=== PATIENT | male | born 1945 | race Caucasian/White ===

== ENCOUNTER → 2019-08-06 | Outpatient (CLI) | payer MEDICARE ==
--- NOTE | 2019-08-06 14:55 | US ---
EXAMINATION TYPE: US kidneys/renal and bladder DATE OF EXAM: 08/06/2019 COMPARISON: NONE CLINICAL HISTORY: N28.1 Cyst of kidney. Patient states having an MRI done at outside facility that sh owed something on a kidney. No pain. EXAM MEASUREMENTS: Right Kidney: 9.0 x 4.7 x 5.1 cm Left Kidney: 10.9 x 4.4 x 5.5 cm Right Kidney: Upper pole cystic appearing lesion = 1.0 x 0.9 x 0.9 cm Left Kidney: lower pole cystic appearing lesion in renal sinus = 0.9 x 0.8 x 0.9 cm Bladder: distended, anechoic Bilateral Jets seen There is no evidence for hydronephrosis at this point in time. No nephrolithiasis is seen. No suspi cious masses are identified. The urinary bladder is anechoic. Bilateral ureteral jets are seen. IMPRESSION: Small renal lesions appear cystic measuring 1.0 cm on the right and 0.9 cm on the left. N o suspicious renal mass is seen. No hydronephrosis nor nephrolithiasis.
== END | disposition home or self-care (01) ==
LOC: RADUSWWP 13:37
PROVIDERS: ATTEND Internal Medicine
DX: N28.9 Disorder of kidney and ureter, unspecified (principal)
CPT/HCPCS: 76770

== ENCOUNTER → 2021-02-20 | Outpatient (CLI) | payer MEDICARE ==
[2021-02-20 18:52] LABS: HCT 45.3 % (39.6-50.0); HGB 14.6 g/dL (13.0-17.0); MCH 29.6 pg (27.0-32.0); MCHC 32.2 g/dL (32.0-37.0); MCV 91.7 fL (80.0-97.0); Mean Platelet Volume 10.7 fL (9.5-12.2); Platelet Count 200 X 10*3/uL (140-440); RBC 4.94 X 10*6/uL (4.40-5.60); RDW 14.2 % (11.5-14.5); WBC 4.79 X 10*3/uL (4.50-10.00)
[2021-02-20 22:57] LABS: African American GFR (CKD) 95.8 (60.0-200.0); Albumin 4.3 g/dL (3.80-4.90); Albumin/Globulin Ratio 2.05 (1.60-3.17); Anion Gap 8.5 mmol/L (4.00-12.00); BUN/Creat Ratio 16.67 Ratio (12.00-20.00); Calcium 9.2 mg/dL (8.7-10.3); Carbon Dioxide 25.5 mmol/L (21.6-31.8); Chol/HDL Ratio 2.85; Globulin 2.1 g/dL (1.6-3.3); Non-African American GFR(CKD) 82.7 (60.0-200.0); Potassium 4.6 mmol/L (3.5-5.5); Total Bilirubin 0.4 mg/dL (0.2-1.2); Total Protein 6.4 g/dL (6.2-8.2)
[2021-02-20 23:06] LABS: T4, Free (Free Thyroxine) 1.8 ng/dL (0.80-1.80)
[2021-02-20 23:08] LABS: Prostate Specific Antigen 4.1 ng/mL (0.0-6.5)
== END | disposition home or self-care (01) ==
LOC: LABWHC1 08:41
PROVIDERS: ATTEND Family Medicine
DX: Z00.00 Encounter for general adult medical examination without abnormal findings (principal); E78.5 Hyperlipidemia, unspecified; E55.9 Vitamin D deficiency, unspecified; E03.9 Hypothyroidism, unspecified; Z12.5 Encounter for screening for malignant neoplasm of prostate
CPT/HCPCS: 36415; 80053; 80061; 82306; 84153; 84439; 84443; 85027

== ENCOUNTER → 2022-02-24 | Outpatient (CLI) | payer MEDICARE ==
[2022-02-24 18:24] LABS: Basophils # (A) 0.02 X 10*3/uL (0.00-0.10); Basophils % (A) 0.3 %; Eosinophils # (A) 0.09 X 10*3/uL (0.04-0.35); Eosinophils % (A) 1.6 %; HCT 46.2 % (39.6-50.0); Immature Grans, Automated 0.5 %; Lymphocytes # (A) 1.37 X 10*3/uL (0.90-5.00); Lymphocytes % (A) 23.7 %; MCHC 32.5 g/dL (32.0-37.0); MCV 92.4 fL (80.0-97.0); Mean Platelet Volume 10.5 fL (9.5-12.2); Monocytes # (A) 0.54 X 10*3/uL (0.20-1.00); Monocytes % (A) 9.3 %; NRBC Per 100 WBC 0 /100 WBCS (0.0-0.0); Neutrophils # (A) 3.74 X 10*3/uL (1.80-7.70); Neutrophils % (A) 64.6 %; Platelet Count 195 X 10*3/uL (140-440); RDW 13.9 % (11.5-14.5); WBC 5.79 X 10*3/uL (4.50-10.00)
[2022-02-24 18:52] LABS: ALT 28 U/L (10-49); AST 27 U/L (14-35); African American GFR (CKD) 81.8 (60.0-200.0); Albumin 4.5 g/dL (3.8-4.9); Albumin/Globulin Ratio 1.84 (1.60-3.17); Alkaline Phosphatase 90 U/L (41-126); BUN/Creat Ratio 18.82 Ratio (12.00-20.00); Blood Urea Nitrogen 19.2 mg/dL (9.0-27.0); Calcium 9.4 mg/dL (8.7-10.3); Carbon Dioxide 26.6 mmol/L (20.0-27.5); Chloride 104 mmol/L (96-109); Chol/HDL Ratio 2.73 Ratio; Globulin 2.4 g/dL (1.6-3.3); Glucose 92 mg/dL (70-110); Non-African American GFR(CKD) 70.6 (60.0-200.0); Potassium 4.8 mmol/L (3.5-5.5); Sodium 141 mmol/L (135-145); Total Protein 6.9 g/dL (6.2-8.2); VLDL Calculation 17.64 mg/dL (5.00-40.00)
== END | disposition home or self-care (01) ==
LOC: LABWHC1 09:59
PROVIDERS: ATTEND Family Medicine
DX: Z12.5 Encounter for screening for malignant neoplasm of prostate (principal); E78.5 Hyperlipidemia, unspecified; E03.9 Hypothyroidism, unspecified
CPT/HCPCS: 36415; 80053; 80061; 84153; 84439; 84443; 84481; 85025

== ENCOUNTER → 2022-03-23 | Outpatient (CLI) | payer MEDICARE ==
--- NOTE | 2022-03-23 15:46 | US ---
EXAMINATION TYPE: US carotid duplex BILAT DATE OF EXAM: 03/23/2022 COMPARISON: NONE CLINICAL HISTORY: 76-year-old male Z82.49 FAMILY HISTORY OF CARDIOVASCULAR DISEASE. TECHNIQUE: Carotid duplex ultrasound examination. Indirect Doppler criteria was utilized. FINDINGS: EXAM MEASUREMENTS: RIGHT: Peak Systolic Velocity (PSV) cm/sec ----- Right CCA: 91.1 ----- Right ICA: 77.2 ----- Right ECA: 153 ICA/CCA ratio: 0.8 RIGHT: End Diastole cm/sec ----- Right CCA: 23.7 ----- Right ICA: 49.3 ----- Right ECA: 21.4 LEFT: Peak Systolic Velocity (PSV) cm/sec ----- Left CCA: 96.2 ----- Left ICA: 68.0 ----- Left ECA: 170.0 ICA/CCA ratio: 0.7 LEFT: End Diastole cm/sec ----- Left CCA: 28.2 ----- Left ICA: 19.1 ----- Left ECA: 26.1 VERTEBRALS (direction of flow): Right Vertebral: Antegrade Left Vertebral: Antegrade Rhythm: Normal Medical Assistant Dermatology notes: Mild atherosclerotic changes with no significant velocity increases. IMPRESSION: No hemodynamically significant internal carotid artery stenosis on either side. Criteria for Assigning % of Stenosis / Diameter reduction (Estimation based on the indirect measurements of the internal carotid artery velocities (ICA PSV). 1. Normal (no stenosis)=ICA PSV < 125 cm/s: ratio < 2.0: ICA EDV<40 cm/s. 2. Less than 50% stenosis=ICA PSV < 125 cm/s: ratio < 2.0: ICA EDV<40 cm/s. 3. 50 to 69% stenosis=ICA PSV of 125 to 230 cm/s: ration 2.0 ? 4.0: ICA EDV 40-100 cm/s. 4. Greater than 70% stenosis to near occlusion= ICA PSV > 230 cm/s: ratio > 4.0: ICA EDV > 100 cm/s. 5. Near occlusion= ICA PSV velocities may be low or undetectable: variable ratio and ICA EDV. 6. Total occlusion=unable to detect flow.
--- NOTE | 2022-03-24 11:52 | CA ---
Transthoracic Echo Report Name: Humberto Simpson Age: 76 Gender: M : 1945 Exam Date: 03/23/2022 15:28 Exam Location: [place] [facility] Ht (in): 67 Wt (lb): 180 Ordering Physician: Karen Sung MD Attending/Referring Phys: Territory Representative Winsome Dyer RDCS Procedure CPT: Indications: Z82.49 FAMILY HX OF CARDIOVASC DISEASE Cardiac Hx: Technical Quality: Good Contrast 1: Total Dose (mL): Contrast 2: Total Dose (mL): MEASUREMENTS (Male / Female) Normal Values 2D ECHO LV Diastolic Diameter PLAX 3.1 cm 4.2 - 5.9 / 3.9 - 5.3 cm LV Systolic Diameter PLAX 2.1 cm IVS Diastolic Thickness 1.3 cm 0.6 - 1.0 / 0.6 - 0.9 cm LVPW Diastolic Thickness 1.4 cm 0.6 - 1.0 / 0.6 - 0.9 cm LV Relative Wall Thickness 0.9 RV Internal Dim ED PLAX 3.5 cm LA Systolic Diameter LX 2.8 cm 3.0 - 4.0 / 2.7 - 3.8 cm LA Volume 23.0 cm??? 18 - 58 / 22 - 52 cm??? M-MODE Aortic Root Diameter MM 3.4 cm MV E Point Septal Separation 0.8 cm AV Cusp Separation MM 2.0 cm DOPPLER AV Peak Velocity 122.4 cm/s AV Peak Gradient 6.0 mmHg MV Area PHT 1.6 cm??? Mitral E Point Velocity 47.5 cm/s Mitral A Point Velocity 99.3 cm/s Mitral E to A Ratio 0.5 MV Deceleration Time 461.1 ms MV E' Velocity 6.7 cm/s Mitral E to MV E' Ratio 7.1 TR Peak Velocity 213.8 cm/s TR Peak Gradient 18.3 mmHg Right Ventricular Systolic Press 21.8 mmHg FINDINGS Left Ventricle Left ventricular ejection fraction is estimated at 60-65 %. Left ventricular cavity size normal. Mild concentric left ventricular hypertrophy. Right Ventricle Right ventricular dilatation. Right ventricular systolic pressure within normal limits. Right Atrium Normal right atrial size. Left Atrium Normal left atrial size. No evidence for an atrial septal defect. Mitral Valve Structurally normal mitral valve. No mitral stenosis, regurgitation or prolapse. Aortic Valve Trileaflet aortic valve. No aortic valve stenosis or regurgitation. Tricuspid Valve Mild tricuspid regurgitation. Pulmonic Valve Mild pulmonic regurgitation. Pericardium Normal pericardium. Aorta Normal size aortic root and proximal ascending aorta. CONCLUSIONS Normal left ventricular ejection fraction 60-65% Mild LVH Mild tricuspid regurgitation No pericardial effusion Previewed by: Dr. Fan Moore DO (Electronically Signed) Final Date: 24 March 2022 11:51
== END | disposition home or self-care (01) ==
LOC: RADUSWWP 14:40
PROVIDERS: ATTEND Family Medicine
DX: I65.23 Occlusion and stenosis of bilateral carotid arteries (principal); Z82.49 Family history of ischemic heart disease and other diseases of the circulatory system
CPT/HCPCS: 93306; 93880

== ENCOUNTER → 2022-04-01 | Outpatient (CLI) | payer MEDICARE ==
--- NOTE | 2022-04-01 11:43 | CA ---
Exercise Stress Test Report Name: Humberto Simpson Exam Date: 04/01/2022 10:49 Exam Location: [place] Stress Ht (in): 67 Wt (lb): 180 BSA: 1.93 Ordering Phys: Karen Sung MD Referring Phys: MARIE,, Technologist: Bhavik Montiel Age: 76 Gender: M : 1945 Procedure CPT: Indications: Z82.49 FAMILY HX OF ISCHEMIC HEART DISEASE ICD-10 Codes: Patient History: DIFFICULTY IN BREATHING, ELEVATED CHOLESTEROL LEVELS, FAMILY HX OF HEART DISEASE Medications: SYNTHROID,,,,,, PIVASTATIN CALCIUM,,,,, Meds past 24 hrs: Pretest Chest Pain: STRESS TEST Jeremy Protocol Exercise Duration (min:sec): 09:[address] Depressions (mm): Angina Score: Biswas Score: Resting HR (bpm): 76 Peak HR (bpm): 135 Resting BP (mmHg): 128 / 80 Peak BP (mmHg): 185 / 91 MPHR: 143 Target HR: 122 % MPHR: 94 METS: 10.3 Total Dose: Peak Dose: Atropine: Double Product: 84004 BP Response: Stress Termination: Stress Symptoms: No symptoms Stress Summary: Patient walked on the Jeremy protocol for 9 minutes without any chest pain or cardiac arrhythmia ECG ANALYSIS Resting ECG: Sinus rhythm with incomplete right bundle branch block Stress ECG: Sinus rhythm without any changes of ischemia CONCLUSIONS #1. Negative stress test. #2. Patient did not experience any chest pain. #3. No arrhythmias detected. #4. Patient's exercise capacity is good Dr. Aguilar Whiting MD (Electronically Signed) Final Date: 01 April 2022 11:42
== END | disposition home or self-care (01) ==
LOC: RADNMMAIN 10:24
PROVIDERS: ATTEND Family Medicine
DX: R07.9 Chest pain, unspecified (principal)
CPT/HCPCS: 93017

== ENCOUNTER 2022-04-03 21:30 | Emergency (ER) | payer MEDICARE ==
[2022-04-03 22:47] VITALS: TEMP 98.5
[2022-04-03 23:48] LABS: Appearance,Urine Clear (Clear); Bacteria,Urine Rare /hpf; Bilirubin,Urine Negative (Negative); Blood,Urine Negative (Negative); Color,Urine Yellow; Glucose,Urine (UA) Negative (Negative); Hyaline Casts,Urine 3 /lpf (0-2); Ketones,Urine Trace (Negative); Leukocyte Esterase,Urine Small (Negative); Mucus,Urine Occasional /hpf; Nitrite,Urine Negative (Negative); PH, Urine 5.5 (5.0-8.0); Protein,Urine Trace (Negative); RBC,Urine 1 /hpf (0-5); Specific Gravity,Urine 1.027 (1.001-1.035); Squamous Epithelial Cell,Urine <1 /hpf (0-4); WBC,Urine 13 /hpf (0-5)
[2022-04-04] MEDS ORDERED: SODIUM CHLORIDE 0.9% 1,000 ML IV STA (00:06)
[2022-04-04] MEDS ORDERED: ONDANSETRON 4 MG/2 ML VIAL IVP STA (00:08)
[2022-04-04] MEDS ORDERED: MORPHINE SULFATE 4 MG/ML SYRINGE IVP STA (00:08)
--- NOTE | 2022-04-04 00:10 | ED ---
Fall HPI <Isaías Duffy - Last Filed: 04/04/22 01:35> - General Source: patient, RN notes reviewed Mode of arrival: ambulatory - History of Present Illness MD Complaint: fall <Bhavik Temple - Last Filed: 04/04/22 03:07> - General Chief Complaint: Fall Stated Complaint: Fall-R sided pain Time Seen by Provider: 04/03/22 23:55 - History of Present Illness Initial Comments: This is a pleasant 76-year-old male who fell on Tuesday after he was mowing lawn. Patient states she slipped ended up falling and striking his right rib cage on a step. Patient sustained bruising to the right rib. This occurred on Tuesday. Patient subsequently had a cardiac stress test here on and was doing okay. However the patient's had worsening pain since then. Describing sharp pain which is worsened with position, movement, and raising of the right arm the head. Pain located in the right lower rib area and right upper quadrant area. No headache, no fever or chills, no changes in vision or hearing, no sore throat or difficulty with speech, no neck pain, no chest pain or shortness of breath, no nausea or vomiting, no changes in urination or bowel movements, no numbness or tingling, no extremity pain, no skin rashes or lesions. Patient not on blood thinners. Has no history of blood dyscrasias. (Bhavik Temple) - Related Data Previous Rx's Medication Instructions Recorded Sulfamethox-Tmp 800-160Mg [Bactrim 1 tab PO Q12HR #20 tab 04/04/22 DS 800-160 mg] Allergies Allergy/AdvReac Type Severity Reaction Status Date / Time atorvastatin [From Lipitor] AdvReac Rash/Hives Verified 04/03/22 22:48 Review of Systems ROS Other: All systems not noted in ROS Statement are negative. <Isaías Duffy - Last Filed: 04/04/22 01:35> ROS Other: All systems not noted in ROS Statement are negative. <Bhavik Temple - Last Filed: 04/04/22 03:07> ROS Statement: Those systems with pertinent positive or pertinent negative responses have been documented in the HPI. Past Medical History Past Medical History: Thyroid Disorder Past Surgical History: No Surgical Hx Reported Past Psychological History: No Psychological Hx Reported Smoking Status: Never smoker Past Alcohol Use History: None Reported Past Drug Use History: None Reported <MaverickBhavik - Last Filed: 04/04/22 03:07> General Exam General appearance: alert, in no apparent distress Head exam: Present: atraumatic, normocephalic, normal inspection Eye exam: Present: normal appearance, PERRL, EOMI. Absent: scleral icterus, conjunctival injection, periorbital swelling ENT exam: Present: normal exam, mucous membranes moist Neck exam: Present: normal inspection. Absent: tenderness, meningismus, lymphadenopathy Respiratory exam: Present: normal lung sounds bilaterally. Absent: respiratory distress, wheezes, rales, rhonchi, stridor Cardiovascular Exam: Present: regular rate, normal rhythm, normal heart sounds. Absent: systolic murmur, diastolic murmur, rubs, gallop, clicks GI/Abdominal exam: Present: soft, tenderness (Right upper quadrant), guarding, normal bowel sounds. Absent: distended, rebound, rigid Extremities exam: Present: normal inspection, full ROM, normal capillary refill. Absent: tenderness, pedal edema, joint swelling, calf tenderness Back exam: Present: normal inspection Neurological exam: Present: alert, oriented X3, CN II-XII intact Psychiatric exam: Present: normal affect, normal mood Skin exam: Present: warm, dry, intact, normal color. Absent: rash <MaverickBhavik - Last Filed: 04/04/22 03:07> - General Exam Comments Initial Comments: Patient has tenderness to the right rib area. There is overlying ecchymosis noted to the right lower ribs. No definitive crepitus. Patient also has tenderness over the right upper quadrant area. Liver edge is not palpable. Abdomen is not tender elsewhere. Voluntary guarding. Cranial nerves II through XII intact (Bhavik Temple) Course Vital Signs 04/03/22 04/04/22 04/04/22 22:41 00:54 02:30 Temperature 98.5 F Pulse Rate 83 85 70 Respiratory 19 16 16 Rate Blood Pressure 159/73 135/84 128/83 O2 Sat by Pulse 95 95 Oximetry Medical Decision Making - Lab Data Result diagrams: 04/04/22 00:32 04/04/22 00:32 - EKG Data -: EKG Interpreted by Me (EKG is sinus rhythm 71 KS 192 QRS 112 QTC 409) <Isaías Duffy - Last Filed: 04/04/22 01:35> - Lab Data Result diagrams: 04/04/22 00:32 04/04/22 00:32 - EKG Data -: EKG Interpreted by Me - Radiology Data Radiology results: report reviewed, image reviewed <Bhavik Temple - Last Filed: 04/04/22 03:07> - Medical Decision Making Patient computed tomography scan shows no evidence of acute pathology. Patient's urinalysis did show evidence of a mild urinary tract infection. Urine culture was sent. I'm going to cover the patient with Bactrim DS and have him follow-up with his regular physician. Patient then informs me he has a urology appointment next Tuesday. We did discuss the possibility of occult fracture of the rib. Patient was understanding of the treatment plan. All questions answered. Patient was told to return to the ER for any signs or symptoms worsen. Told to return immediately if any other problems arise. All questions answered. Treatment plan discussed. Patient in agreement Every effort has been made to ensure accuracy of this dictation. However, due to the limitations of electronic medical records and dictation devices, errors in charting still occur. Low Pressure Kettle Operator Dr. Duffy (Bhavik Temple) - Lab Data Lab Results 04/03/22 04/04/22 04/04/22 Range/Units 23:01 00:32 00:32 WBC 6.9 (3.8-10.6) k/uL RBC 4.60 (4.30-5.90) m/uL Hgb 13.4 (13.0-17.5) gm/dL Hct 42.4 (39.0-53.0) % MCV 92.2 (80.0-100.0) fL MCH 29.1 (25.0-35.0) pg MCHC 31.6 (31.0-37.0) g/dL RDW 13.2 (11.5-15.5) % Plt Count 185 (150-450) k/uL MPV 8.0 Neutrophils % 57 % Lymphocytes % 28 % Monocytes % 9 % Eosinophils % 2 % Basophils % 1 % Neutrophils # 4.0 (1.3-7.7) k/uL Lymphocytes # 1.9 (1.0-4.8) k/uL Monocytes # 0.6 (0-1.0) k/uL Eosinophils # 0.2 (0-0.7) k/uL Basophils # 0.1 (0-0.2) k/uL PT (9.0-12.0) sec INR (<1.2) APTT (22.0-30.0) sec Sodium 138 (137-145) mmol/L Potassium 4.7 (3.5-5.1) mmol/L Chloride 104 (98-107) mmol/L Carbon Dioxide 29 (22-30) mmol/L Anion Gap 5 mmol/L BUN 24 H (9-20) mg/dL Creatinine 1.12 (0.66-1.25) mg/dL Est GFR (CKD-EPI)AfAm 73 (>60 ml/min/1.73 sqM) Est GFR (CKD-EPI)NonAf 63 (>60 ml/min/1.73 sqM) Glucose 96 (74-99) mg/dL Calcium 8.5 (8.4-10.2) mg/dL Total Bilirubin 0.4 (0.2-1.3) mg/dL AST 48 (17-59) U/L ALT 36 (4-49) U/L Alkaline Phosphatase 92 (38-126) U/L Troponin I (0.000-0.034) ng/mL Total Protein 6.6 (6.3-8.2) g/dL Albumin 4.1 (3.5-5.0) g/dL Amylase 85 (30-110) U/L Lipase 223 (23-300) U/L Urine Color Yellow Urine Appearance Clear (Clear) Urine pH 5.5 (5.0-8.0) Ur Specific [place] 1.027 (1.001-1.035) Urine Protein Trace H (Negative) Urine Glucose (UA) Negative (Negative) Urine Ketones Trace H (Negative) Urine Blood Negative (Negative) Urine Nitrite Negative (Negative) Urine Bilirubin Negative (Negative) Urine Urobilinogen 2.0 (<2.0) mg/dL Ur Leukocyte Esterase Small H (Negative) Urine RBC 1 (0-5) /hpf Urine WBC 13 H (0-5) /hpf Ur Squamous Epith Cells <1 (0-4) /hpf Urine Bacteria Rare H (None) /hpf Hyaline Casts 3 H (0-2) /lpf Urine Mucus Occasional H (None) /hpf 04/04/22 04/04/22 Range/Units 00:32 00:32 WBC (3.8-10.6) k/uL RBC (4.30-5.90) m/uL Hgb (13.0-17.5) gm/dL Hct (39.0-53.0) % MCV (80.0-100.0) fL MCH (25.0-35.0) pg MCHC (31.0-37.0) g/dL RDW (11.5-15.5) % Plt Count (150-450) k/uL MPV Neutrophils % % Lymphocytes % % Monocytes % % Eosinophils % % Basophils % % Neutrophils # (1.3-7.7) k/uL Lymphocytes # (1.0-4.8) k/uL Monocytes # (0-1.0) k/uL Eosinophils # (0-0.7) k/uL Basophils # (0-0.2) k/uL PT 9.9 (9.0-12.0) sec INR 0.9 (<1.2) APTT 24.2 (22.0-30.0) sec Sodium (137-145) mmol/L Potassium (3.5-5.1) mmol/L Chloride (98-107) mmol/L Carbon Dioxide (22-30) mmol/L Anion Gap mmol/L BUN (9-20) mg/dL Creatinine (0.66-1.25) mg/dL Est GFR (CKD-EPI)AfAm (>60 ml/min/1.73 sqM) Est GFR (CKD-EPI)NonAf (>60 ml/min/1.73 sqM) Glucose (74-99) mg/dL Calcium (8.4-10.2) mg/dL Total Bilirubin (0.2-1.3) mg/dL AST (17-59) U/L ALT (4-49) U/L Alkaline Phosphatase (38-126) U/L Troponin I <0.012 (0.000-0.034) ng/mL Total Protein (6.3-8.2) g/dL Albumin (3.5-5.0) g/dL Amylase (30-110) U/L Lipase (23-300) U/L Urine Color Urine Appearance (Clear) Urine pH (5.0-8.0) Ur Specific [place] (1.001-1.035) Urine Protein (Negative) Urine Glucose (UA) (Negative) Urine Ketones (Negative) Urine Blood (Negative) Urine Nitrite (Negative) Urine Bilirubin (Negative) Urine Urobilinogen (<2.0) mg/dL Ur Leukocyte Esterase (Negative) Urine RBC (0-5) /hpf Urine WBC (0-5) /hpf Ur Squamous Epith Cells (0-4) /hpf Urine Bacteria (None) /hpf Hyaline Casts (0-2) /lpf Urine Mucus (None) /hpf Disposition <Isaías Duffy - Last Filed: 04/04/22 01:35> Is patient prescribed a controlled substance at d/c from ED?: No <Bhavik Temple - Last Filed: 04/04/22 03:07> Clinical Impression: Chest wall contusion, Rib contusion Disposition: HOME SELF-CARE Condition: Good Instructions (If sedation given, give patient instructions): Fall Prevention for Older Adults (ED), Chest Wall Pain (ED), Urinary Tract Infection in Men (ED) Additional Instructions: Follow-up with your regular physician as directed. Return to the ER immediately if any symptoms worsen, new symptoms arise, or any other problems develop. Take the antibiotics as directed. Follow-up with her regular doctor on Tuesday. Follow-up with your urologist next Tuesday. Prescriptions: Sulfamethox-Tmp 800-160Mg [Bactrim DS 800-160 mg] 1 tab PO Q12HR #20 tab Referrals: Karen Sung MD [Primary Care Provider] - 1-2 days
[2022-04-04 00:56] VITALS: RESP 16
[2022-04-04 01:06] LABS: Basophils # (A) 0.1 k/uL (0-0.2); Basophils % (A) 1 %; Eosinophils # (A) 0.2 k/uL (0-0.7); Eosinophils % (A) 2 %; HCT 42.4 % (39.0-53.0); HGB 13.4 gm/dL (13.0-17.5); Lymphocytes # (A) 1.9 k/uL (1.0-4.8); Lymphocytes % (A) 28 %; MCH 29.1 pg (25.0-35.0); MCHC 31.6 g/dL (31.0-37.0); MCV 92.2 fL (80.0-100.0); Monocytes # (A) 0.6 k/uL (0-1.0); Monocytes % (A) 9 %; Neutrophils % (A) 57 %; Platelet Count 185 k/uL (150-450); RDW 13.2 % (11.5-15.5); WBC 6.9 k/uL (3.8-10.6)
[2022-04-04 01:20] LABS: Albumin 4.1 g/dL (3.5-5.0); Calcium 8.5 mg/dL (8.4-10.2); Potassium 4.7 mmol/L (3.5-5.1); Total Bilirubin 0.4 mg/dL (0.2-1.3); Total Protein 6.6 g/dL (6.3-8.2)
[2022-04-04 01:25] LABS: INR 0.9 (<1.2); Partial Thromboplastin Time 24.2 sec (22.0-30.0); Prothrombin Time 9.9 sec (9.0-12.0)
--- NOTE | 2022-04-04 01:53 | CT ---
EXAMINATION TYPE: CT ChestAbdPelvis w con DATE OF EXAM: 04/04/2022 COMPARISON: None HISTORY: pain CT DLP: 1143.7 mGycm Automated exposure control for dose reduction was used. CONTRAST: Performed with IV Contrast, patient injected with 100 mL of Isovue 300. Images obtained from the thoracic inlet to the floor of the pelvis with IV contrast. There is no mediastinal adenopathy. There are no hilar masses. Heart size is normal. Thoracic aorta i s intact. No aneurysm or dissection. The lungs are clear of infiltrate. No pleural effusion or pneumothorax. The liver spleen appear intact. There is hiatal hernia. The stomach has normal size. Gallbladder appe ars normal. The bile ducts are not dilated. There is no pancreatic mass. There is no adrenal mass. There is 1.5 cm exophytic cyst anterior right kidney with calcification. Ki dneys show satisfactory contrast opacification. Delayed images show normal renal excretion. There is no retroperitoneal adenopathy. Bladder distends smoothly. Prostate is enlarged and measures 5.6 cm. N o inguinal hernia. No free fluid in the pelvis. There are multiple sigmoid diverticula. Appendix not seen. No sagittal thickened appendix. There is no mesenteric edema. No ascites or free air. No sign o f a bowel obstruction. The thoracic and lumbar vertebra appear intact. No compression fracture. There is degenerative disc s pace narrowing in the lumbar spine with vacuum disc and spur formation. Sternum is intact. The bony p julissa is intact. The hip joints are intact. Sacroiliac joints appear normal. Shoulder joints appear i ntact. No evidence of a rib fracture. IMPRESSION: Atypical cyst anterior right kidney contains peripheral calcification and likely benign. Appendix not seen. No evidence of acute traumatic injury of the chest abdomen pelvis.
[2022-04-04] MEDS ORDERED: SULFAMETHOX-TMP 800-160MG 1 EACH TAB PO STA (02:03)
[2022-04-04] MEDS ORDERED: CYCLOBENZAPRINE 10MG STARTER 3 TAB BTL PO STA (02:04)
[2022-04-04] MEDS ORDERED: ACET/COD 300 MG/30 MG STARTER PACK 6 TAB BTL PO STA (02:04)
[2022-04-04 02:30] VITALS: BP 128/83; PULSE 70
== END 2022-04-04 02:30 | disposition home or self-care (01) ==
LOC: EC 21:30
DX: S20.211A Contusion of right front wall of thorax, initial encounter (principal); Z88.8 Allergy status to other drugs, medicaments and biological substances; W01.0XXA Fall on same level from slipping, tripping and stumbling without subsequent striking against object, initial encounter
CPT/HCPCS: 36415; 93005; 80053; 82150; 83690; 84484; 85025; 85610; 85730; 81001; 87086; 71260; 74177; 99284; 96374; 96375; 96361; J2270; J2405; Q9967

== ENCOUNTER → 2023-03-28 | Outpatient (CLI) | payer MEDICARE | END | disposition home or self-care (01) | LOC: LABWHC1 08:46 | PROVIDERS: ATTEND Urology | DX: R97.20 Elevated prostate specific antigen [PSA] (principal) | CPT/HCPCS: 36415; 84153 ==